=== PATIENT | female | born 1940 | race Native Hawaiian/Other Pacific Islander ===

== ENCOUNTER 2016-11-15 16:57 | Outpatient (CLI) | payer OTHER ==
[~2016-11-15 16:57] MED LIST: BENZONATATE200 MG PO; CIPRO500 MG PO; DEXL60CA4 PO; FISH OIL OR; LEVO0.0529 PO; LISI10TA11 PO; LOPRESSOR100 MG PO; LOSA50TA8 PO; MIRAPEX0.25 MG OR; MOME50SP; MULTIVITAMIN OR; PROPRANOLOL80 MG OR; RANI150T78 PO; WARFARIN2.5 MG OR; Z-PAK PO
== END 2016-11-15 20:10 | disposition home or self-care (01) ==
LOC: LABW 16:57
DX: D68.8 Other specified coagulation defects (principal)
CPT/HCPCS: 36415; 85610

== ENCOUNTER 2016-12-08 13:20 | Outpatient (CLI) | payer OTHER | END 2016-12-08 19:20 | disposition home or self-care (01) | LOC: LABW 13:20 | DX: D68.8 Other specified coagulation defects (principal) | CPT/HCPCS: 36415; 85610 ==

== ENCOUNTER 2017-01-12 13:12 | Outpatient (CLI) | payer OTHER | END 2017-01-12 19:18 | disposition home or self-care (01) | LOC: LABW 13:12 | DX: D68.8 Other specified coagulation defects (principal) | CPT/HCPCS: 36415; 85610 ==

== ENCOUNTER 2017-01-18 08:46 | Outpatient (CLI) | payer OTHER ==
[2017-01-18 09:08] LABS: PLATELET COUNT 232 K/uL (152-353)
[2017-01-18 10:39] LABS: POTASSIUM 4.1 mmol/L (3.6-5.2); SODIUM 132 mmol/L (136-145)
== END 2017-01-18 09:46 | disposition home or self-care (01) ==
LOC: LABW 08:46
PROVIDERS: Internal Medicine
DX: I10 Essential (primary) hypertension (principal); E03.8 Other specified hypothyroidism
CPT/HCPCS: 36415; 80053; 80061; 81000; 84439; 84443; 85027

== ENCOUNTER 2017-02-10 13:26 | Outpatient (CLI) | payer OTHER | END 2017-02-10 19:12 | disposition home or self-care (01) | LOC: LABW 13:26 | DX: D68.8 Other specified coagulation defects (principal) | CPT/HCPCS: 36415; 85610 ==

== ENCOUNTER 2017-03-15 09:01 | Outpatient (CLI) | payer OTHER | END 2017-03-15 19:29 | disposition home or self-care (01) | LOC: LAB 09:01 → US 09:01 | DX: D68.8 Other specified coagulation defects (principal); R10.84 Generalized abdominal pain | CPT/HCPCS: 36415; 85610 ==

== ENCOUNTER 2017-04-05 12:14 | Outpatient (CLI) | payer OTHER | END 2017-04-05 19:09 | disposition home or self-care (01) | LOC: LABW 12:14 | DX: D68.8 Other specified coagulation defects (principal) | CPT/HCPCS: 36415; 85610 ==

== ENCOUNTER 2017-05-17 13:25 | Outpatient (CLI) | payer OTHER | END 2017-05-17 19:09 | disposition home or self-care (01) | LOC: LABW 13:25 | DX: Z79.01 Long term (current) use of anticoagulants (principal); Z51.81 Encounter for therapeutic drug level monitoring; D68.8 Other specified coagulation defects | CPT/HCPCS: 36415; 85610 ==

== ENCOUNTER 2017-05-20 11:59 | Outpatient (CLI) | payer OTHER | END 2017-05-20 13:00 | disposition home or self-care (01) | LOC: LABW 11:59 | DX: Z79.01 Long term (current) use of anticoagulants (principal); Z51.81 Encounter for therapeutic drug level monitoring | CPT/HCPCS: 36415; 85610 ==

== ENCOUNTER 2017-06-02 11:02 | Outpatient (CLI) | payer OTHER | END 2017-06-02 19:31 | disposition home or self-care (01) | LOC: LABW 11:02 | DX: Z79.01 Long term (current) use of anticoagulants (principal); Z51.81 Encounter for therapeutic drug level monitoring | CPT/HCPCS: 36415; 85610 ==

== ENCOUNTER 2017-06-13 15:11 | Outpatient (CLI) | payer OTHER | END 2017-06-13 16:15 | disposition home or self-care (01) | LOC: LABW 15:11 | DX: Z79.01 Long term (current) use of anticoagulants (principal); Z51.81 Encounter for therapeutic drug level monitoring | CPT/HCPCS: 36415; 85610 ==

== ENCOUNTER 2017-06-15 11:14 | Outpatient (CLI) | payer OTHER | END 2017-06-15 18:56 | disposition home or self-care (01) | LOC: LABW 11:14 | DX: Z79.01 Long term (current) use of anticoagulants (principal); B35.1 Tinea unguium; Z51.81 Encounter for therapeutic drug level monitoring | CPT/HCPCS: 36415; 84450; 84460; 85610 ==

== ENCOUNTER 2017-06-28 11:16 | Outpatient (CLI) | payer OTHER | END 2017-06-28 20:03 | disposition home or self-care (01) | LOC: LABW 11:16 | DX: Z79.01 Long term (current) use of anticoagulants (principal); Z51.81 Encounter for therapeutic drug level monitoring | CPT/HCPCS: 36415; 85610 ==

== ENCOUNTER 2017-07-06 12:00 | Outpatient (CLI) | payer OTHER | END 2017-07-06 13:00 | disposition home or self-care (01) | LOC: RAD 12:00 | DX: Z79.01 Long term (current) use of anticoagulants (principal); Z51.81 Encounter for therapeutic drug level monitoring; M54.2 Cervicalgia | CPT/HCPCS: 36415; 85610 ==

== ENCOUNTER 2017-07-15 15:17 | Outpatient (CLI) | payer OTHER | END 2017-07-15 16:20 | disposition home or self-care (01) | LOC: LABW 15:17 | DX: Z79.01 Long term (current) use of anticoagulants (principal); Z51.81 Encounter for therapeutic drug level monitoring | CPT/HCPCS: 36415; 85610 ==

== ENCOUNTER 2017-08-10 11:44 | Outpatient (CLI) | payer OTHER | END 2017-08-10 12:45 | disposition home or self-care (01) | LOC: LABW 11:44 | DX: Z79.01 Long term (current) use of anticoagulants (principal); Z51.81 Encounter for therapeutic drug level monitoring | CPT/HCPCS: 36415; 85610 ==

== ENCOUNTER 2017-09-12 14:48 | Outpatient (CLI) | payer OTHER | END 2017-09-12 18:59 | disposition home or self-care (01) | LOC: LABW 14:48 → RAD 14:48 | DX: Z79.01 Long term (current) use of anticoagulants (principal); Z51.81 Encounter for therapeutic drug level monitoring; M51.36 Other intervertebral disc degeneration, lumbar region | CPT/HCPCS: 36415; 85610 ==

== ENCOUNTER 2017-10-06 15:36 | Outpatient (CLI) | payer OTHER | END 2017-10-06 19:44 | disposition home or self-care (01) | LOC: LABW 15:36 | DX: Z79.01 Long term (current) use of anticoagulants (principal); Z51.81 Encounter for therapeutic drug level monitoring | CPT/HCPCS: 36415; 85610 ==

== ENCOUNTER 2017-11-16 14:42 | Outpatient (CLI) | payer OTHER | END 2017-11-17 04:44 | disposition home or self-care (01) | LOC: LABW 14:42 | DX: Z79.01 Long term (current) use of anticoagulants (principal); Z51.81 Encounter for therapeutic drug level monitoring | CPT/HCPCS: 36415; 85610 ==

== ENCOUNTER 2017-12-09 10:30 | Outpatient (CLI) | payer OTHER | END 2017-12-09 21:58 | disposition home or self-care (01) | LOC: LABW 10:30 | DX: Z79.01 Long term (current) use of anticoagulants (principal); Z51.81 Encounter for therapeutic drug level monitoring | CPT/HCPCS: 36415; 85610 ==

== ENCOUNTER 2017-12-22 10:45 | Outpatient (CLI) | payer OTHER | END 2017-12-22 11:45 | disposition home or self-care (01) | LOC: LABW 10:45 | DX: Z79.01 Long term (current) use of anticoagulants (principal); Z51.81 Encounter for therapeutic drug level monitoring | CPT/HCPCS: 36415; 85610 ==

== ENCOUNTER 2017-12-26 11:54 | Outpatient (CLI) | payer OTHER | END 2017-12-26 21:32 | disposition home or self-care (01) | LOC: LABW 11:54 | DX: Z79.01 Long term (current) use of anticoagulants (principal); Z51.81 Encounter for therapeutic drug level monitoring | CPT/HCPCS: 36415; 85610 ==

== ENCOUNTER 2018-01-05 14:14 | Outpatient (CLI) | payer OTHER | END 2018-01-05 22:58 | disposition home or self-care (01) | LOC: LABW 14:14 | DX: Z79.01 Long term (current) use of anticoagulants (principal); Z51.81 Encounter for therapeutic drug level monitoring | CPT/HCPCS: 36415; 85610 ==

== ENCOUNTER 2018-01-10 09:09 | Outpatient (CLI) | payer OTHER | END 2018-01-10 22:54 | disposition home or self-care (01) | LOC: LABW 09:09 | DX: Z79.01 Long term (current) use of anticoagulants (principal); Z51.81 Encounter for therapeutic drug level monitoring | CPT/HCPCS: 36415; 85610 ==

== ENCOUNTER 2018-02-06 12:32 | Outpatient (CLI) | payer OTHER | END 2018-02-06 22:50 | disposition home or self-care (01) | LOC: LABW 12:32 | DX: Z79.01 Long term (current) use of anticoagulants (principal); Z51.81 Encounter for therapeutic drug level monitoring | CPT/HCPCS: 36415; 85610 ==

== ENCOUNTER 2018-02-17 14:25 | Outpatient (CLI) | payer OTHER | END 2018-02-17 22:16 | disposition home or self-care (01) | LOC: LABW 14:25 | DX: Z12.31 Encounter for screening mammogram for malignant neoplasm of breast (principal); Z79.01 Long term (current) use of anticoagulants; Z51.81 Encounter for therapeutic drug level monitoring | CPT/HCPCS: 36415; 85610 ==

== ENCOUNTER 2018-03-29 11:45 | Outpatient (CLI) | payer OTHER ==
[2018-03-29 12:36] LABS: POTASSIUM 2.7 mmol/L (3.6-5.2)
== END 2018-03-29 19:29 | disposition home or self-care (01) ==
LOC: LABW 11:45
PROVIDERS: Internal Medicine Cardiovascular Disease
DX: Z09 Encounter for follow-up examination after completed treatment for conditions other than malignant neoplasm (principal); R60.0 Localized edema; Z79.01 Long term (current) use of anticoagulants; Z51.81 Encounter for therapeutic drug level monitoring
CPT/HCPCS: 36415; 80048; 85610

== ENCOUNTER 2018-03-31 12:23 | Outpatient (CLI) | payer OTHER | END 2018-03-31 23:16 | disposition home or self-care (01) | LOC: LABW 12:23 | PROVIDERS: Internal Medicine Cardiovascular Disease | DX: I10 Essential (primary) hypertension (principal); E87.6 Hypokalemia | CPT/HCPCS: 36415; 80048 ==

== ENCOUNTER 2018-04-11 13:42 | Outpatient (CLI) | payer OTHER ==
[2018-04-11 14:31] LABS: POTASSIUM 3.1 mmol/L (3.6-5.2)
== END 2018-04-11 21:55 | disposition home or self-care (01) ==
LOC: LABW 13:42
PROVIDERS: Internal Medicine Cardiovascular Disease
DX: E87.6 Hypokalemia (principal); Z79.01 Long term (current) use of anticoagulants
CPT/HCPCS: 36415; 80048; 85610

== ENCOUNTER 2018-06-13 11:07 | Outpatient (CLI) | payer OTHER | END 2018-06-13 23:52 | disposition home or self-care (01) | LOC: LABW 11:07 | DX: Z79.01 Long term (current) use of anticoagulants (principal) | CPT/HCPCS: 36415; 85610 ==

== ENCOUNTER 2018-06-22 09:35 | Outpatient (CLI) | payer OTHER ==
[2018-06-22 09:57] LABS: POTASSIUM 2.9 mmol/L (3.6-5.2)
== END 2018-06-22 23:19 | disposition home or self-care (01) ==
LOC: LABW 09:35
PROVIDERS: Internal Medicine Cardiovascular Disease
DX: E87.6 Hypokalemia (principal); R53.81 Other malaise
CPT/HCPCS: 36415; 80048

== ENCOUNTER 2018-06-29 14:20 | Outpatient (CLI) | payer OTHER ==
[2018-06-29 14:44] LABS: POTASSIUM 4.1 mmol/L (3.6-5.2)
== END 2018-06-29 19:51 | disposition home or self-care (01) ==
LOC: LABW 14:20
PROVIDERS: Internal Medicine Cardiovascular Disease
DX: I10 Essential (primary) hypertension (principal); R06.00 Dyspnea, unspecified; Z09 Encounter for follow-up examination after completed treatment for conditions other than malignant neoplasm
CPT/HCPCS: 36415; 80048

== ENCOUNTER 2018-07-13 11:13 | Outpatient (CLI) | payer OTHER | END 2018-07-13 19:36 | disposition home or self-care (01) | LOC: LABW 11:13 | DX: D68.9 Coagulation defect, unspecified (principal) | CPT/HCPCS: 36415; 85610 ==

== ENCOUNTER 2018-08-10 15:19 | Outpatient (CLI) | payer OTHER | END 2018-08-10 19:47 | disposition home or self-care (01) | LOC: LABW 15:19 | DX: D68.9 Coagulation defect, unspecified (principal) | CPT/HCPCS: 36415; 85610 ==

== ENCOUNTER 2018-08-24 10:53 | Outpatient (CLI) | payer OTHER ==
[2018-08-24 11:33] LABS: PLATELET COUNT 271 K/uL (152-353)
[2018-08-24 11:56] LABS: POTASSIUM 4.3 mmol/L (3.6-5.2)
== END 2018-08-24 20:14 | disposition home or self-care (01) ==
LOC: LABW 10:53
PROVIDERS: Physician Assistant
DX: E03.9 Hypothyroidism, unspecified (principal); I10 Essential (primary) hypertension; I48.0 Paroxysmal atrial fibrillation; Z79.01 Long term (current) use of anticoagulants; Z79.899 Other long term (current) drug therapy; Z13.820 Encounter for screening for osteoporosis
CPT/HCPCS: 36415; 80053; 82306; 83036; 84439; 84443; 85027; 85610

== ENCOUNTER 2018-09-12 11:29 | Outpatient (CLI) | payer OTHER | END 2018-09-12 21:07 | disposition home or self-care (01) | LOC: LABW 11:29 | DX: D68.9 Coagulation defect, unspecified (principal) | CPT/HCPCS: 36415; 85610 ==

== ENCOUNTER 2018-09-29 11:19 | Outpatient (CLI) | payer OTHER ==
[2018-09-29 11:53] LABS: POTASSIUM 4.2 mmol/L (3.6-5.2)
== END 2018-09-29 20:53 | disposition home or self-care (01) ==
LOC: LABW 11:19
PROVIDERS: Internal Medicine Cardiovascular Disease
DX: I25.119 Atherosclerotic heart disease of native coronary artery with unspecified angina pectoris (principal); D68.9 Coagulation defect, unspecified
CPT/HCPCS: 36415; 80048; 85610

== ENCOUNTER 2018-10-31 14:45 | Outpatient (CLI) | payer OTHER | END 2018-10-31 23:34 | disposition home or self-care (01) | LOC: LABW 14:45 | DX: D68.9 Coagulation defect, unspecified (principal) | CPT/HCPCS: 36415; 85610 ==

== ENCOUNTER 2018-12-06 15:33 | Outpatient (CLI) | payer OTHER | END 2018-12-06 20:11 | disposition home or self-care (01) | LOC: LABW 15:33 | DX: D68.9 Coagulation defect, unspecified (principal) | CPT/HCPCS: 36415; 85610 ==

== ENCOUNTER 2018-12-18 14:00 | Outpatient (CLI) | payer OTHER ==
[2018-12-18 14:41] LABS: POTASSIUM 4.5 mmol/L (3.6-5.2)
== END 2018-12-18 22:14 | disposition home or self-care (01) ==
LOC: LABW 14:00
PROVIDERS: Internal Medicine Cardiovascular Disease
DX: R60.9 Edema, unspecified (principal); I10 Essential (primary) hypertension; Z09 Encounter for follow-up examination after completed treatment for conditions other than malignant neoplasm; D68.9 Coagulation defect, unspecified
CPT/HCPCS: 36415; 80048; 85610

== ENCOUNTER 2019-01-09 11:32 | Outpatient (CLI) | payer OTHER | END 2019-01-09 21:08 | disposition home or self-care (01) | LOC: LABW 11:32 | DX: D68.9 Coagulation defect, unspecified (principal) | CPT/HCPCS: 36415; 85610 ==

== ENCOUNTER 2019-02-06 14:34 | Outpatient (CLI) | payer OTHER | END 2019-02-06 20:30 | disposition home or self-care (01) | LOC: LABW 14:34 | DX: D68.8 Other specified coagulation defects (principal) | CPT/HCPCS: 36415; 85610 ==

== ENCOUNTER 2019-02-15 10:55 | Outpatient (CLI) | payer OTHER | END 2019-02-15 19:54 | disposition home or self-care (01) | LOC: LABW 10:55 | DX: D68.8 Other specified coagulation defects (principal) | CPT/HCPCS: 36415; 85610 ==

== ENCOUNTER 2019-03-07 15:36 | Outpatient (CLI) | payer OTHER ==
[2019-03-07 16:07] LABS: POTASSIUM 4.4 mmol/L (3.6-5.2)
== END 2019-03-07 20:10 | disposition home or self-care (01) ==
LOC: LABW 15:36
PROVIDERS: Internal Medicine Cardiovascular Disease
DX: I10 Essential (primary) hypertension (principal); Z09 Encounter for follow-up examination after completed treatment for conditions other than malignant neoplasm; D68.8 Other specified coagulation defects
CPT/HCPCS: 36415; 80048; 85610

== ENCOUNTER 2019-04-17 14:31 | Outpatient (CLI) | payer OTHER | END 2019-04-17 20:02 | disposition home or self-care (01) | LOC: LABW 14:31 → MAMMO 15:00 → LABW 20:02 → MAMMO 04-18 11:30 | DX: D68.9 Coagulation defect, unspecified (principal); Z12.31 Encounter for screening mammogram for malignant neoplasm of breast | CPT/HCPCS: 36415; 85610 ==

== ENCOUNTER 2019-04-25 11:04 | Outpatient (CLI) | payer OTHER | END 2019-04-25 23:11 | disposition home or self-care (01) | LOC: LABW 11:04 | DX: D68.8 Other specified coagulation defects (principal) | CPT/HCPCS: 36415; 85610 ==

== ENCOUNTER 2019-05-09 13:59 | Outpatient (CLI) | payer OTHER | END 2019-05-09 23:40 | disposition home or self-care (01) | LOC: LABW 13:59 | DX: D68.9 Coagulation defect, unspecified (principal) | CPT/HCPCS: 36415; 85610 ==

== ENCOUNTER 2019-05-17 13:55 | Outpatient (CLI) | payer OTHER | END 2019-05-17 20:20 | disposition home or self-care (01) | LOC: LABW 13:55 | DX: D68.8 Other specified coagulation defects (principal) | CPT/HCPCS: 36415; 85610 ==

== ENCOUNTER 2019-06-22 08:55 | Outpatient (CLI) | payer OTHER | END 2019-06-22 22:06 | disposition home or self-care (01) | LOC: CT 08:55 → LAB 08:55 → CT 09:00 | DX: R31.9 Hematuria, unspecified (principal); D68.8 Other specified coagulation defects | CPT/HCPCS: 36415; 85610 ==

== ENCOUNTER 2019-06-25 12:34 | Outpatient (CLI) | payer OTHER | END 2019-06-25 22:39 | disposition home or self-care (01) | LOC: LABW 12:34 | DX: D68.8 Other specified coagulation defects (principal) | CPT/HCPCS: 36415; 85610 ==

== ENCOUNTER 2019-09-17 14:25 | Outpatient (CLI) | payer OTHER | END 2019-09-17 20:47 | disposition home or self-care (01) | LOC: LABW 14:25 | DX: D68.8 Other specified coagulation defects (principal) | CPT/HCPCS: 36415; 85610 ==

== ENCOUNTER 2019-10-04 14:20 | Outpatient (CLI) | payer OTHER | END 2019-10-04 19:38 | disposition home or self-care (01) | LOC: LABW 14:20 | DX: D68.8 Other specified coagulation defects (principal) | CPT/HCPCS: 36415; 85610 ==

== ENCOUNTER 2019-10-30 13:32 | Outpatient (CLI) | payer OTHER | END 2019-10-30 19:46 | disposition home or self-care (01) | LOC: LABW 13:32 | DX: D68.8 Other specified coagulation defects (principal) | CPT/HCPCS: 36415; 85610 ==

== ENCOUNTER 2019-11-19 11:48 | Outpatient (CLI) | payer OTHER | END 2019-11-19 19:14 | disposition home or self-care (01) | LOC: RAD 11:48 | DX: M79.671 Pain in right foot (principal); M25.551 Pain in right hip; M54.5 Low back pain ==

== ENCOUNTER 2019-12-14 17:28 | Outpatient (CLI) | payer OTHER | END 2019-12-14 19:14 | disposition home or self-care (01) | LOC: LABW 17:28 | DX: D68.8 Other specified coagulation defects (principal) | CPT/HCPCS: 36415; 85610 ==

== ENCOUNTER 2020-01-22 13:37 | Outpatient (CLI) | payer OTHER | END 2020-01-22 19:11 | disposition home or self-care (01) | LOC: LABW 13:37 | DX: D68.8 Other specified coagulation defects (principal) | CPT/HCPCS: 36415; 85610 ==

== ENCOUNTER 2020-02-19 12:27 | Outpatient (CLI) | payer OTHER | END 2020-02-19 19:08 | disposition home or self-care (01) | LOC: LABW 12:27 | DX: D68.8 Other specified coagulation defects (principal) | CPT/HCPCS: 36415; 85610 ==

== ENCOUNTER 2020-03-18 10:59 | Outpatient (CLI) | payer OTHER | END 2020-03-18 19:11 | disposition home or self-care (01) | LOC: LABW 10:59 | DX: D68.8 Other specified coagulation defects (principal) | CPT/HCPCS: 36415; 85610 ==

== ENCOUNTER 2020-04-01 13:26 | Outpatient (CLI) | payer OTHER | END 2020-04-01 20:07 | disposition home or self-care (01) | LOC: LABW 13:26 | DX: D68.8 Other specified coagulation defects (principal) | CPT/HCPCS: 36415; 85610 ==

== ENCOUNTER 2020-05-05 15:31 | Outpatient (CLI) | payer OTHER | END 2020-05-05 20:11 | disposition home or self-care (01) | LOC: LABW 15:31 | DX: D68.8 Other specified coagulation defects (principal) | CPT/HCPCS: 36415; 85610 ==

== ENCOUNTER 2020-06-10 11:43 | Outpatient (CLI) | payer OTHER | END 2020-06-10 20:31 | disposition home or self-care (01) | LOC: LABW 11:43 | DX: D68.8 Other specified coagulation defects (principal) | CPT/HCPCS: 36415; 85610 ==

== ENCOUNTER 2020-06-13 14:11 | Outpatient (CLI) | payer OTHER | END 2020-06-13 20:45 | disposition home or self-care (01) | LOC: LABW 14:11 | DX: D68.8 Other specified coagulation defects (principal) | CPT/HCPCS: 36415; 85610 ==

== ENCOUNTER 2020-07-02 14:39 | Outpatient (CLI) | payer OTHER | END 2020-07-02 20:19 | disposition home or self-care (01) | LOC: LABW 14:39 | DX: D68.8 Other specified coagulation defects (principal) | CPT/HCPCS: 36415; 85610 ==

== ENCOUNTER 2020-07-18 11:14 | Outpatient (CLI) | payer OTHER | END 2020-07-19 03:39 | disposition home or self-care (01) | LOC: LABW 11:14 | DX: D68.8 Other specified coagulation defects (principal) | CPT/HCPCS: 36415; 85610 ==

== ENCOUNTER 2020-07-21 15:08 | Outpatient (CLI) | payer OTHER | END 2020-07-22 01:09 | disposition home or self-care (01) | LOC: RAD 15:08 | DX: M50.820 Other cervical disc disorders, mid-cervical region, unspecified level (principal) ==

== ENCOUNTER 2020-08-12 09:41 | Outpatient (CLI) | payer OTHER ==
[2020-08-12 10:35] LABS: PLATELET COUNT 265 K/uL (152-353)
[2020-08-12 11:22] LABS: POTASSIUM 3.9 mmol/L (3.6-5.2)
== END 2020-08-12 20:16 | disposition home or self-care (01) ==
LOC: LABW 09:41
PROVIDERS: Internal Medicine
DX: E03.8 Other specified hypothyroidism (principal); I10 Essential (primary) hypertension; M47.27 Other spondylosis with radiculopathy, lumbosacral region; D68.8 Other specified coagulation defects
CPT/HCPCS: 36415; 80053; 80061; 81000; 82085; 82550; 84439; 84443; 85027; 85610

== ENCOUNTER 2020-08-26 13:31 | Outpatient (CLI) | payer OTHER | END 2020-08-26 19:09 | disposition home or self-care (01) | LOC: LABW 13:31 | DX: D68.8 Other specified coagulation defects (principal) | CPT/HCPCS: 36415; 85610 ==

== ENCOUNTER 2020-09-05 11:11 | Outpatient (CLI) | payer OTHER | END 2020-09-05 19:33 | disposition home or self-care (01) | LOC: MAMMO 11:11 | PROVIDERS: ATTEND Internal Medicine | DX: Z12.31 Encounter for screening mammogram for malignant neoplasm of breast (principal) ==

== ENCOUNTER 2020-09-15 13:57 | Outpatient (CLI) | payer OTHER | END 2020-09-15 22:17 | disposition home or self-care (01) | LOC: RAD 13:57 | PROVIDERS: ATTEND Physician Assistant | DX: M25.561 Pain in right knee (principal) ==

== ENCOUNTER 2020-10-29 13:02 | Outpatient (CLI) | payer OTHER | END 2020-10-29 19:41 | disposition home or self-care (01) | LOC: LAB 13:02 | PROVIDERS: ATTEND Internal Medicine | DX: D68.8 Other specified coagulation defects (principal) | CPT/HCPCS: 36415; 85610 ==

== ENCOUNTER 2020-11-25 12:11 | Outpatient (CLI) | payer OTHER | END 2020-11-25 19:41 | disposition home or self-care (01) | LOC: LABW 12:11 | PROVIDERS: ATTEND Internal Medicine | DX: D68.8 Other specified coagulation defects (principal) | CPT/HCPCS: 36415; 85610 ==

== ENCOUNTER 2020-12-16 11:15 | Outpatient (CLI) | payer OTHER | END 2020-12-16 20:14 | disposition home or self-care (01) | LOC: LABW 11:15 | PROVIDERS: ATTEND Internal Medicine | DX: D68.8 Other specified coagulation defects (principal) | CPT/HCPCS: 36415; 85610 ==

== ENCOUNTER 2021-01-05 15:16 | Outpatient (CLI) | payer OTHER | END 2021-01-05 20:59 | disposition home or self-care (01) | LOC: LABW 15:16 | PROVIDERS: ATTEND Internal Medicine | DX: D68.8 Other specified coagulation defects (principal) | CPT/HCPCS: 36415; 85610 ==

== ENCOUNTER 2021-02-11 13:48 | Outpatient (CLI) | payer OTHER | END 2021-02-11 21:55 | disposition home or self-care (01) | LOC: LABW 13:48 | PROVIDERS: ATTEND Internal Medicine | DX: D68.8 Other specified coagulation defects (principal) | CPT/HCPCS: 36415; 85610 ==

== ENCOUNTER 2021-02-16 13:06 | Outpatient (CLI) | payer OTHER | END 2021-02-16 19:39 | disposition home or self-care (01) | LOC: LABW 13:06 | PROVIDERS: ATTEND Internal Medicine | DX: D68.8 Other specified coagulation defects (principal) | CPT/HCPCS: 36415; 85610 ==

== ENCOUNTER 2021-03-02 12:22 | Emergency (ER) | payer OTHER ==
[~2021-03-02] VITALS: Ht 152.4 cm; Wt 76.7 kg
[2021-03-02 12:40] VITALS: TEMP 98
[2021-03-02 13:14] LABS: PLATELET COUNT 229 K/uL (152-353)
[2021-03-02 13:27] LABS: POTASSIUM 3.3 mmol/L (3.6-5.2)
[2021-03-02 14:30] VITALS: BP 141/73
== END 2021-03-02 14:54 | disposition home or self-care (01) ==
LOC: ED 12:22
PROVIDERS: Emergency Medicine Emergency Medical Services
DX: K29.70 Gastritis, unspecified, without bleeding (principal); R10.13 Epigastric pain
CPT/HCPCS: 80053; 83690; 85027; 85610; 93005; 99283; Q9963

== ENCOUNTER 2021-03-13 09:21 | Outpatient (CLI) | payer OTHER | END 2021-03-13 22:54 | disposition home or self-care (01) | LOC: LABW 09:21 | PROVIDERS: ATTEND Internal Medicine | DX: D68.8 Other specified coagulation defects (principal) | CPT/HCPCS: 36415; 85610 ==

== ENCOUNTER 2021-03-25 09:51 | Outpatient (CLI) | payer OTHER | END 2021-03-25 23:02 | disposition home or self-care (01) | LOC: LABW 09:51 | PROVIDERS: ATTEND Internal Medicine | DX: D68.8 Other specified coagulation defects (principal) | CPT/HCPCS: 36415; 85610 ==

== ENCOUNTER 2021-04-08 16:12 | Outpatient (CLI) | payer OTHER | END 2021-04-08 23:59 | disposition home or self-care (01) | LOC: CT 16:12 | PROVIDERS: ATTEND Internal Medicine | DX: M54.5 Low back pain (principal); M25.552 Pain in left hip; M79.602 Pain in left arm ==

== ENCOUNTER 2021-05-11 13:14 | Outpatient (CLI) | payer OTHER | END 2021-05-11 21:06 | disposition home or self-care (01) | LOC: LAB 13:14 → RAD 13:14 | PROVIDERS: ATTEND Internal Medicine | DX: Z13.820 Encounter for screening for osteoporosis (principal); D68.8 Other specified coagulation defects; N95.8 Other specified menopausal and perimenopausal disorders | CPT/HCPCS: 36415; 85610 ==

== ENCOUNTER 2021-07-23 13:32 | Outpatient (CLI) | payer OTHER | END 2021-07-23 19:33 | disposition home or self-care (01) | LOC: LABW 13:32 | PROVIDERS: ATTEND Internal Medicine | DX: D68.8 Other specified coagulation defects (principal) | CPT/HCPCS: 36415; 85610 ==

== ENCOUNTER 2021-08-31 11:45 | Outpatient (CLI) | payer OTHER | END 2021-08-31 21:50 | disposition home or self-care (01) | LOC: LABW 11:45 | PROVIDERS: ATTEND Internal Medicine | DX: D68.8 Other specified coagulation defects (principal) | CPT/HCPCS: 36415; 85610 ==

== ENCOUNTER 2021-09-23 14:23 | Outpatient (CLI) | payer OTHER | END 2021-09-23 20:31 | disposition home or self-care (01) | LOC: LABW 14:23 | PROVIDERS: ATTEND Internal Medicine | DX: D68.8 Other specified coagulation defects (principal) | CPT/HCPCS: 36415; 85610 ==

== ENCOUNTER 2021-10-19 14:04 | Outpatient (CLI) | payer OTHER | END 2021-10-19 18:55 | disposition home or self-care (01) | LOC: LABW 14:04 | PROVIDERS: ATTEND Internal Medicine | DX: D68.8 Other specified coagulation defects (principal) | CPT/HCPCS: 36415; 85610 ==

== ENCOUNTER 2021-10-21 14:44 | Outpatient (CLI) | payer OTHER | END 2021-10-21 20:03 | disposition home or self-care (01) | LOC: LABW 14:44 | PROVIDERS: ATTEND Internal Medicine | DX: D68.9 Coagulation defect, unspecified (principal) | CPT/HCPCS: 36415; 85610 ==

== ENCOUNTER 2021-10-23 11:01 | Outpatient (CLI) | payer OTHER | END 2021-10-23 23:02 | disposition home or self-care (01) | LOC: LABW 11:01 | PROVIDERS: ATTEND Internal Medicine | DX: D68.9 Coagulation defect, unspecified (principal) | CPT/HCPCS: 36415; 85610 ==

== ENCOUNTER 2021-10-29 13:28 | Outpatient (CLI) | payer OTHER | END 2021-10-29 19:15 | disposition home or self-care (01) | LOC: LABW 13:28 | PROVIDERS: ATTEND Internal Medicine | DX: D68.9 Coagulation defect, unspecified (principal) | CPT/HCPCS: 36415; 85610 ==

== ENCOUNTER 2021-11-12 11:47 | Outpatient (CLI) | payer OTHER | END 2021-11-12 20:47 | disposition home or self-care (01) | LOC: LABW 11:47 | PROVIDERS: ATTEND Internal Medicine | DX: D68.8 Other specified coagulation defects (principal) | CPT/HCPCS: 36415; 85610 ==

== ENCOUNTER 2021-11-30 10:57 | Outpatient (CLI) | payer OTHER | END 2021-11-30 19:14 | disposition home or self-care (01) | LOC: LABW 10:57 | PROVIDERS: ATTEND Internal Medicine | DX: D68.8 Other specified coagulation defects (principal) | CPT/HCPCS: 36415; 85610 ==

== ENCOUNTER 2021-12-14 11:15 | Outpatient (CLI) | payer OTHER ==
[2021-12-14 12:36] LABS: POTASSIUM 2.5 mmol/L (3.6-5.2)
== END 2021-12-14 18:52 | disposition home or self-care (01) ==
LOC: LABW 11:15
PROVIDERS: ATTEND Internal Medicine
DX: B35.3 Tinea pedis (principal); D68.8 Other specified coagulation defects
CPT/HCPCS: 36415; 80053; 85610

== ENCOUNTER 2022-01-07 12:36 | Outpatient (CLI) | payer OTHER | END 2022-01-07 20:01 | disposition home or self-care (01) | LOC: LABW 12:36 | PROVIDERS: ATTEND Internal Medicine | DX: E87.6 Hypokalemia (principal); D68.8 Other specified coagulation defects | CPT/HCPCS: 36415; 84132; 85610 ==

== ENCOUNTER 2022-01-19 12:18 | Outpatient (CLI) | payer OTHER ==
[2022-01-19 13:51] LABS: POTASSIUM 4.2 mmol/L (3.6-5.2)
== END 2022-01-19 19:11 | disposition home or self-care (01) ==
LOC: LABW 12:18 → RAD 12:18 → LABW 19:11
PROVIDERS: ATTEND Internal Medicine
DX: E87.6 Hypokalemia (principal); D68.8 Other specified coagulation defects
CPT/HCPCS: 36415; 83735; 84132; 85610

== ENCOUNTER 2022-02-02 13:14 | Outpatient (CLI) | payer OTHER | END 2022-02-02 18:55 | disposition home or self-care (01) | LOC: LABW 13:14 | PROVIDERS: ATTEND Internal Medicine | DX: D68.8 Other specified coagulation defects (principal) | CPT/HCPCS: 36415; 85610 ==

== ENCOUNTER 2022-02-17 14:06 | Outpatient (CLI) | payer OTHER | END 2022-02-17 21:42 | disposition home or self-care (01) | LOC: LABW 14:06 | PROVIDERS: ATTEND Internal Medicine | DX: D68.8 Other specified coagulation defects (principal) | CPT/HCPCS: 36415; 85610 ==

== ENCOUNTER 2022-03-03 10:46 | Outpatient (CLI) | payer OTHER | END 2022-03-03 19:17 | disposition home or self-care (01) | LOC: MAMMO 10:46 | PROVIDERS: ATTEND Internal Medicine | DX: Z12.31 Encounter for screening mammogram for malignant neoplasm of breast (principal) ==

== ENCOUNTER 2022-03-09 12:58 | Outpatient (CLI) | payer OTHER | END 2022-03-09 19:30 | disposition home or self-care (01) | LOC: LABW 12:58 | PROVIDERS: ATTEND Internal Medicine | DX: D68.8 Other specified coagulation defects (principal) | CPT/HCPCS: 36415; 85610 ==

== ENCOUNTER 2022-03-19 10:04 | Outpatient (CLI) | payer OTHER | END 2022-03-19 19:20 | disposition home or self-care (01) | LOC: MRI 10:04 | PROVIDERS: ATTEND Internal Medicine | DX: M51.16 Intervertebral disc disorders with radiculopathy, lumbar region (principal) ==

== ENCOUNTER 2022-03-29 14:58 | Outpatient (CLI) | payer OTHER | END 2022-03-29 19:04 | disposition home or self-care (01) | LOC: LABW 14:58 | PROVIDERS: ATTEND Internal Medicine | DX: D68.9 Coagulation defect, unspecified (principal) | CPT/HCPCS: 36415; 85610 ==

== ENCOUNTER 2022-05-04 14:27 | Outpatient (CLI) | payer OTHER ==
[2022-05-04 14:53] LABS: PLATELET COUNT 329 K/uL (152-353)
[2022-05-04 15:15] LABS: POTASSIUM 3.8 mmol/L (3.6-5.2)
== END 2022-05-04 18:58 | disposition home or self-care (01) ==
LOC: LABW 14:27
PROVIDERS: ATTEND Internal Medicine
DX: I48.91 Unspecified atrial fibrillation (principal); I10 Essential (primary) hypertension
CPT/HCPCS: 36415; 80053; 80061; 81002; 83735; 84439; 84443; 85027; 85610

== ENCOUNTER 2022-06-29 11:45 | Outpatient (CLI) | payer OTHER | END 2022-06-29 19:37 | disposition home or self-care (01) | LOC: LABW 11:45 | PROVIDERS: ATTEND Internal Medicine | DX: D68.8 Other specified coagulation defects (principal) | CPT/HCPCS: 36415; 85610 ==

== ENCOUNTER 2022-07-13 09:48 | Outpatient (CLI) | payer OTHER ==
[2022-07-13 11:26] LABS: PLATELET COUNT 268 K/uL (152-353)
[2022-07-13 11:27] LABS: POTASSIUM 4.2 mmol/L (3.6-5.2)
== END 2022-07-13 21:01 | disposition home or self-care (01) ==
LOC: RAD 09:48
PROVIDERS: ATTEND Internal Medicine
DX: E03.8 Other specified hypothyroidism (principal); R63.4 Abnormal weight loss; I10 Essential (primary) hypertension; Z79.899 Other long term (current) drug therapy
CPT/HCPCS: 36415; 80053; 80061; 81002; 83036; 84134; 84439; 84443; 85027

== ENCOUNTER 2022-07-27 17:17 | Outpatient (CLI) | payer OTHER | END 2022-07-27 19:37 | disposition home or self-care (01) | LOC: LAB 17:17 | PROVIDERS: ATTEND Internal Medicine | DX: N39.0 Urinary tract infection, site not specified (principal) | CPT/HCPCS: 87077; 87086; 87088; 87186 ==

== ENCOUNTER 2022-08-16 15:28 | Outpatient (CLI) | payer OTHER | END 2022-08-16 19:39 | disposition home or self-care (01) | LOC: LABW 15:28 | PROVIDERS: ATTEND Internal Medicine | DX: D68.8 Other specified coagulation defects (principal) | CPT/HCPCS: 36415; 85610 ==

== ENCOUNTER 2022-11-15 10:39 | Outpatient (CLI) | payer OTHER ==
[2022-11-15 11:14] LABS: PLATELET COUNT 267 K/uL (152-353)
[2022-11-15 11:41] LABS: POTASSIUM 4.1 mmol/L (3.6-5.2)
== END 2022-11-15 19:04 | disposition home or self-care (01) ==
LOC: LABW 10:39
PROVIDERS: ATTEND Internal Medicine
DX: D64.89 Other specified anemias (principal); I48.91 Unspecified atrial fibrillation; I10 Essential (primary) hypertension
CPT/HCPCS: 36415; 80053; 80061; 81002; 84439; 84443; 85027; 85610

== ENCOUNTER 2023-02-21 15:59 | Outpatient (CLI) | payer OTHER | END 2023-02-21 19:04 | disposition home or self-care (01) | LOC: US 15:59 | PROVIDERS: ATTEND Internal Medicine | DX: M79.89 Other specified soft tissue disorders (principal) ==

== ENCOUNTER 2023-03-16 14:45 | Outpatient (CLI) | payer OTHER | END 2023-03-16 19:00 | LOC: CT 14:45 | PROVIDERS: ATTEND Internal Medicine | DX: M81.0 Age-related osteoporosis without current pathological fracture (principal) ==

== ENCOUNTER 2023-03-18 17:00 | Outpatient (CLI) | payer OTHER | END 2023-03-18 19:03 | disposition home or self-care (01) | LOC: CT 17:00 | PROVIDERS: ATTEND Internal Medicine | DX: R51.9 Headache, unspecified (principal) ==

== ENCOUNTER 2023-04-12 15:33 | Observation (INO) | payer OTHER ==
[~2023-04-12] VITALS: Ht 152.4 cm; Wt 55.8 kg
[~2023-04-12 15:33] MED LIST changes: +HYDR5TAB9 PO; -MIRAPEX0.25 MG OR; +PRAMIPEXOLE0.25 MG PO
[2023-04-12 16:00] VITALS: BP 125/72; TEMP 98.6; Ht 152.4 cm; Wt 55.8 kg
[2023-04-12] MEDS ORDERED: BACLOFEN10 MG PO (17:15)
[2023-04-12] MEDS ORDERED: ONDANSETRON ODT PO (17:18)
[2023-04-12] MEDS ORDERED: FURO40TA93 PO (17:18)
[2023-04-12] MEDS ORDERED: NEURONTIN 100M100 MG PO (17:19)
[2023-04-12] MEDS ORDERED: METO100T37 PO (17:19)
[2023-04-12] MEDS ORDERED: KLOR-CON M2020 MEQ PO (17:20)
[2023-04-12] MEDS ORDERED: WARF5TAB6 PO (17:20)
[2023-04-12] MEDS ORDERED: TRAMADOL HYDROC50 MG PO (17:21)
[2023-04-12] MEDS ORDERED: EUTHYROX50 MCG PO (17:21)
[2023-04-12] MEDS ORDERED: SPIRONOLACT25 MG PO (17:22)
[2023-04-12] MEDS ORDERED: CITALOPRAM10 M1 PO (17:22)
[2023-04-12] MEDS ORDERED: FISH OIL OMEGA-1 CAP PO (17:23)
[2023-04-12] MEDS ORDERED: VITAMIN D PO (17:23)
[2023-04-12] MEDS ORDERED: VITAMIN B COMPLEX PO (17:24)
[2023-04-12] MEDS ORDERED: VITAMIN C TABLET PO (17:24)
[2023-04-12] MEDS ORDERED: OMEP20CA PO (17:25)
[2023-04-12 17:31] LABS: POTASSIUM 3.5 mmol/L (3.6-5.2)
[2023-04-12 17:32] LABS: PLATELET COUNT 264 K/uL (152-353)
[2023-04-12 20:00] VITALS: BP 129/78; TEMP 98.6
[2023-04-13] VITALS: BP 117/55; TEMP 98.6
[2023-04-13 04:00] VITALS: BP 113/64; TEMP 98.6
[2023-04-13 08:10] VITALS: BP 146/62; TEMP 98.2
[2023-04-13 12:00] VITALS: BP 128/59; TEMP 98.4
== END 2023-04-13 16:30 | disposition home health service (06) ==
LOC: MED/SURG 15:33
PROVIDERS: Family Medicine; ADMIT Internal Medicine; ATTEND Internal Medicine
DX: R60.0 Localized edema (principal); I10 Essential (primary) hypertension; E03.8 Other specified hypothyroidism; I48.0 Paroxysmal atrial fibrillation; Z79.01 Long term (current) use of anticoagulants; G25.81 Restless legs syndrome; G89.4 Chronic pain syndrome; K21.9 Gastro-esophageal reflux disease without esophagitis; F17.210 Nicotine dependence, cigarettes, uncomplicated
CPT/HCPCS: 36415; 80053; 83880; 85027; 85379; 85610; 85652; 96367; 96372; 96374; 96375; 99220; 99221; G0378; G0379; J1650; J1940